=== PATIENT | male | born 1980 | race Caucasian/White ===

== ENCOUNTER 2023-03-29 04:40 | Emergency (ER) | payer SELFPAY ==
[2023-03-29] MEDS ORDERED: Ketorolac Tromethamine 30 MG (1 mL) VIAL ONE (05:12)
[2023-03-29] MEDS ORDERED: Orphenadrine Citrate 60 MG/2 ML VIAL ONE (05:12)
== END 2023-03-29 06:05 | disposition home or self-care (01) ==
LOC: MADERS 04:40
DX: M25.511 Pain in right shoulder (principal)
CPT/HCPCS: 96372; 99283; J1885; J2360